=== PATIENT | female | born 1960 | race African-American/Black ===

== ENCOUNTER 2024-11-15 01:45 | Inpatient (IN) | payer OTHER ==
[2024-11-15] MEDS ORDERED: ACETAMINOPHEN INJECTION 100 ML ONE (02:49)
[2024-11-15] MEDS: ACETAMINOPHEN 1000 MG/100 ML BAG IVPB ONE (03:00)
[2024-11-15 03:05] LABS: BASO % 0.2 % (0-2.0); HEMATOCRIT 32.1 % (32.4-45.2); HEMOGLOBIN 9.7 GM/dL (10.7-15.3); LYMPH % 13.4 % (8-40); MCH 30.5 pg (25.7-33.7); MCHC 30.2 g/dl (32.0-36.0); MEAN CELL VOLUME 100.8 fl (80-96); MEAN PLT VOLUME 6.4 fl (7.5-11.1); MONO % 10.7 % (3.8-10.2); NEUT % 74.7 % (42.8-82.8); PLATELET COUNT 481 10^3/uL (134-434); RBC 3.18 M/mm3 (3.60-5.2); RDW 22.2 % (11.6-15.6); WHITE BLOOD COUNT 10.4 K/mm3 (4.0-10.0)
[2024-11-15 03:13] LABS: VENOUS BASE EXCESS 0.7 mmol/L (-2-2); VENOUS O2 SATURATION 37.5 % (70-80); VENOUS PCO2 44.7 mmHg (38-52); VENOUS PH 7.385 (7.310-7.410)
[2024-11-15 03:21] LABS: INR 1.36 (0.83-1.09)
[2024-11-15 03:24] LABS: ACTIVATED PTT 33.2 SECONDS (25.2-36.5)
[2024-11-15 03:39] LABS: CHLORIDE 108 mmol/L (98-107); SODIUM 142 mmol/L (136-145)
[2024-11-15 03:41] LABS: ALBUMIN 1.8 g/dl (3.4-5.0); BLOOD UREA NITROGEN 20.9 mg/dL (7-18); CALCIUM 8.8 mg/dL (8.5-10.1); CO2 27 mmol/L (21-32)
[2024-11-15 03:42] LABS: GLUCOSE,RANDOM 109 mg/dL (74-106)
[2024-11-15 03:44] LABS: CREATININE 0.8 mg/dL (0.55-1.3); SGPT/ALT 35 U/L (13-61)
[2024-11-15 03:45] LABS: SGOT/AST 36 U/L (15-37)
[2024-11-15 03:46] LABS: BILIRUBIN,TOTAL 0.6 mg/dL (0.2-1); TOT PROT 6.5 g/dl (6.4-8.2)
[2024-11-15 03:47] LABS: ALK PHOS 103 U/L (45-117)
[2024-11-15 03:56] LABS: ANION GAP 7 mmol/L (4-13); POTASSIUM 2.8 mmol/L (3.5-5.1)
[2024-11-15] MEDS: LACTATED RINGERS SOLUTION 1000 ML INFUS.BAG IV ONE (04:00)
[2024-11-15 04:11] LABS: MACROCYTOSIS 1+
[2024-11-15] MEDS: KCL 10 MEQ IVPB 10 MEQ/100 ML INFUS.BAG IVPB SCH (04:55)
[2024-11-15 05:56] LABS: MAGNESIUM 1.5 mg/dL (1.8-2.4)
[2024-11-15] MEDS: MAGNESIUM SULFATE IN WATER 2 GM/50 ML IVPB IVPB ONE (07:40)
[2024-11-15] MEDS ORDERED: MAGNESIUM SULFATE IN WATER 2 GM/50 ML IVPB IVPB ONE (07:51)
[2024-11-15] MEDS ORDERED: ACETAMINOPHEN 325 MG TABLET (FP) PO PRN ×2 (08:24→09:29)
[2024-11-15] MEDS: DEXTROSE 5%-LACTATED RINGERS 1,000 ML IV SCH (09:08)
[2024-11-15] MEDS: VANCOMYCIN 1 GM PREMIX (F) 1 GM/200 ML BAG IVPB SCH (10:35)
[2024-11-15] MEDS ORDERED: VANCOMYCIN 1 GM PREMIX (F) 1 GM/200 ML BAG ONE (11:21)
[2024-11-15 12:15] LABS: POTASSIUM 3.7 mmol/L (3.5-5.1)
[2024-11-15 12:17] LABS: BLOOD UREA NITROGEN 21.2 mg/dL (7-18); CALCIUM 9.4 mg/dL (8.5-10.1)
[2024-11-15 12:21] LABS: CREATININE 0.8 mg/dL (0.55-1.3)
[2024-11-15] MEDS: LOSARTAN POTASSIUM 50 MG TABLET PO SCH (13:42)
[2024-11-15] MEDS: FERROUS SO4 325 MG TABLET (FP) PO SCH (13:42)
[2024-11-15] MEDS: ASCORBIC ACID 500 MG TABLET (FP) PO SCH (13:43)
[2024-11-15] MEDS: CHLORTHALIDONE 25 MG TABLET PO SCH (13:43)
[2024-11-15] MEDS: MINERAL OIL/PETROLAT/WATER TOPICAL CREAM 113 GM JAR TP SCH (13:55)
[2024-11-15] MEDS: DONEPEZIL HCL 10 MG TABLET (FP) PO SCH (21:14)
[2024-11-15] MEDS: ATORVASTATIN CA 10 MG TABLET (FP) PO SCH (21:15)
[2024-11-16] MEDS: ACETAMINOPHEN 1000 MG/100 ML BAG IVPB ONE (00:52)
[2024-11-16 09:14] LABS: BASO % 0.6 % (0-2.0); EOS % 1.3 % (0-4.5); HEMATOCRIT 30.5 % (32.4-45.2); HEMOGLOBIN 9.6 GM/dL (10.7-15.3); LYMPH % 12.6 % (8-40); MCH 31.6 pg (25.7-33.7); MCHC 31.4 g/dl (32.0-36.0); MEAN CELL VOLUME 100.7 fl (80-96); MEAN PLT VOLUME 6.5 fl (7.5-11.1); MONO % 12.6 % (3.8-10.2); NEUT % 72.9 % (42.8-82.8); PLATELET COUNT 521 10^3/uL (134-434); RBC 3.03 M/mm3 (3.60-5.2); RDW 21.6 % (11.6-15.6); WHITE BLOOD COUNT 9.4 K/mm3 (4.0-10.0)
[2024-11-16 09:41] LABS: POTASSIUM 3.7 mmol/L (3.5-5.1)
[2024-11-16 09:46] LABS: ALBUMIN 1.7 g/dl (3.4-5.0); BLOOD UREA NITROGEN 13.8 mg/dL (7-18)
[2024-11-16 09:47] LABS: CALCIUM 8.8 mg/dL (8.5-10.1)
[2024-11-16 09:48] LABS: MAGNESIUM 2.1 mg/dL (1.8-2.4)
[2024-11-16 09:50] LABS: CREATININE 0.6 mg/dL (0.55-1.3)
[2024-11-16 09:52] LABS: BILIRUBIN,TOTAL 0.7 mg/dL (0.2-1); TOT PROT 6.5 g/dl (6.4-8.2)
[2024-11-16] MEDS ORDERED: GLUCAGON 1 MG KIT ONE (13:13)
[2024-11-16] MEDS ORDERED: FENTANYL CITRATE/PF 50 MCG/ML VIAL ONE (13:13)
[2024-11-16] MEDS: GlUCAGON HUMAN RECOMBINANT 1 MG/VIAL IVPUSH ONE (13:24)
[2024-11-16 16:09] VITALS: BMI 27.4
[2024-11-16] MEDS: SODIUM CHLORIDE 0.9% 1000 ML INFUS.BAG IV ONE (18:59)
[2024-11-16] MEDS: SODIUM CHLORIDE 1,000 ML IV SCH (19:54)
[2024-11-16] MEDS: VANCOMYCIN 1 GM PREMIX (F) 1 GM/200 ML BAG IVPB SCH (19:57)
[2024-11-16] MEDS: SODIUM CHLORIDE 0.9% 500 ML INFUS.BAG IV SCH (19:58)
[2024-11-16 20:17] LABS: POTASSIUM 3.4 mmol/L (3.5-5.1)
[2024-11-16 20:18] LABS: CALCIUM 8.9 mg/dL (8.5-10.1)
[2024-11-16 20:19] LABS: ALBUMIN 1.7 g/dl (3.4-5.0); BLOOD UREA NITROGEN 13.7 mg/dL (7-18)
[2024-11-16 20:22] LABS: CREATININE 0.6 mg/dL (0.55-1.3)
[2024-11-16 20:24] LABS: BILIRUBIN,TOTAL 0.6 mg/dL (0.2-1); TOT PROT 6.3 g/dl (6.4-8.2)
[2024-11-16] MEDS: PIPERACILLIN/TAZOB 3.375 GM 50 ML IVPB SCH (21:11)
[2024-11-16] MEDS: VANCOMYCIN/WATER FOR INJ (PEG) 1,000 MG/200 ML BAG IVPB SCH (22:09)
[2024-11-17 07:31] LABS: BASO % 0.4 % (0-2.0); EOS % 0.7 % (0-4.5); HEMATOCRIT 27.9 % (32.4-45.2); HEMOGLOBIN 8.9 GM/dL (10.7-15.3); LYMPH % 10.9 % (8-40); MEAN CELL VOLUME 100.1 fl (80-96); MEAN PLT VOLUME 6.6 fl (7.5-11.1); MONO % 10.3 % (3.8-10.2); NEUT % 77.7 % (42.8-82.8); PLATELET COUNT 482 10^3/uL (134-434); RBC 2.79 M/mm3 (3.60-5.2); RDW 21.8 % (11.6-15.6); WHITE BLOOD COUNT 11.8 K/mm3 (4.0-10.0)
[2024-11-17 07:38] LABS: MAGNESIUM 1.6 mg/dL (1.8-2.4)
[2024-11-17] MEDS ORDERED: ACETAMINOPHEN 325 MG TABLET (FP) PO PRN (08:48)
[2024-11-17] MEDS: MAGNESIUM SULFATE IN WATER 2 GM/50 ML IVPB IVPB ONE (08:55)
[2024-11-17 09:13] LABS: POTASSIUM 3.2 mmol/L (3.5-5.1)
[2024-11-17 09:14] LABS: CALCIUM 8.3 mg/dL (8.5-10.1)
[2024-11-17 09:15] LABS: BLOOD UREA NITROGEN 12.5 mg/dL (7-18)
[2024-11-17 09:18] LABS: CREATININE 0.6 mg/dL (0.55-1.3)
[2024-11-17] MEDS: CHLORTHALIDONE 25 MG TABLET PO SCH (09:25)
[2024-11-17] MEDS: LOSARTAN POTASSIUM 50 MG TABLET PO SCH (09:25)
[2024-11-17] MEDS: FERROUS SO4 325 MG TABLET (FP) PO SCH (09:25)
[2024-11-17] MEDS: ASCORBIC ACID 500 MG TABLET (FP) PO SCH (09:26)
[2024-11-17] MEDS: MINERAL OIL/PETROLAT/WATER TOPICAL CREAM 113 GM JAR TP SCH (09:26)
[2024-11-17] MEDS: KCL 10 MEQ IVPB 10 MEQ/100 ML INFUS.BAG IVPB SCH (09:35)
[2024-11-17] MEDS: DONEPEZIL HCL 10 MG TABLET (FP) PO SCH (21:03)
[2024-11-17] MEDS: ATORVASTATIN CA 10 MG TABLET (FP) PO SCH (21:04)
[2024-11-18] MEDS: ALBUTEROL SO4 2.5/IPRATROPIUM 0.5 INH SOL 3 ML VIAL.NEB. NEB ONE (03:25)
[2024-11-18] MEDS: ACETAMINOPHEN 1000 MG/100 ML BAG IVPB ONE (04:29)
[2024-11-18 07:12] LABS: BASO % 0.5 % (0-2.0); EOS % 1.2 % (0-4.5); HEMATOCRIT 28.3 % (32.4-45.2); HEMOGLOBIN 8.9 GM/dL (10.7-15.3); LYMPH % 9.9 % (8-40); MCHC 31.3 g/dl (32.0-36.0); MEAN CELL VOLUME 102.1 fl (80-96); MEAN PLT VOLUME 6.6 fl (7.5-11.1); MONO % 9.1 % (3.8-10.2); NEUT % 79.3 % (42.8-82.8); PLATELET COUNT 475 10^3/uL (134-434); RBC 2.77 M/mm3 (3.60-5.2); RDW 21.6 % (11.6-15.6); WHITE BLOOD COUNT 13.6 K/mm3 (4.0-10.0)
[2024-11-18 07:32] LABS: POTASSIUM 3.2 mmol/L (3.5-5.1)
[2024-11-18 07:46] LABS: BLOOD UREA NITROGEN 12.3 mg/dL (7-18); CALCIUM 8.7 mg/dL (8.5-10.1); MAGNESIUM 2.2 mg/dL (1.8-2.4)
[2024-11-18 07:49] LABS: CREATININE 0.8 mg/dL (0.55-1.3); PHOSPHOROUS 2.9 mg/dL (2.5-4.9)
[2024-11-18] MEDS: SODIUM HYPOCHLORITE 0.25%- 473 ML BULK BOTTLE TP SCH (09:57)
[2024-11-18] MEDS: POTASSIUM CHLORIDE ORAL LIQUID 20 MEQ/15 ML PO SCH (18:36)
[2024-11-19 07:40] LABS: POTASSIUM 4.1 mmol/L (3.5-5.1)
[2024-11-19 07:45] LABS: BASO % 0.4 % (0-2.0); EOS % 2.9 % (0-4.5); HEMATOCRIT 29.2 % (32.4-45.2); HEMOGLOBIN 9.1 GM/dL (10.7-15.3); LYMPH % 15.9 % (8-40); MCH 31.6 pg (25.7-33.7); MCHC 31.2 g/dl (32.0-36.0); MEAN CELL VOLUME 101.3 fl (80-96); MEAN PLT VOLUME 6.7 fl (7.5-11.1); MONO % 7.7 % (3.8-10.2); NEUT % 73.1 % (42.8-82.8); PLATELET COUNT 486 10^3/uL (134-434); RBC 2.88 M/mm3 (3.60-5.2); RDW 21.5 % (11.6-15.6); WHITE BLOOD COUNT 12.1 K/mm3 (4.0-10.0)
[2024-11-19 07:49] LABS: BLOOD UREA NITROGEN 11.8 mg/dL (7-18); CALCIUM 8.6 mg/dL (8.5-10.1)
[2024-11-19 07:50] LABS: ALBUMIN 1.7 g/dl (3.4-5.0); MAGNESIUM 2.1 mg/dL (1.8-2.4)
[2024-11-19 07:53] LABS: CREATININE 0.6 mg/dL (0.55-1.3)
[2024-11-19 07:54] LABS: BILIRUBIN,TOTAL 0.4 mg/dL (0.2-1); TOT PROT 6.3 g/dl (6.4-8.2)
[2024-11-19] MEDS: AMINO ACIDS/PROTEIN HYDROLYS 30 ML LIQUID.PKT PO SCH (10:40)
[2024-11-19] MEDS: NAPH,MB-DB/K PH,MBDB POWDER PACKET PO ONE (10:41)
[2024-11-20 07:35] LABS: POTASSIUM 4.3 mmol/L (3.5-5.1)
[2024-11-20 07:36] LABS: BASO % 0.2 % (0-2.0); EOS % 2.8 % (0-4.5); HEMATOCRIT 31.2 % (32.4-45.2); HEMOGLOBIN 9.7 GM/dL (10.7-15.3); LYMPH % 18.1 % (8-40); MCH 31.8 pg (25.7-33.7); MCHC 31.1 g/dl (32.0-36.0); MEAN CELL VOLUME 102.2 fl (80-96); MEAN PLT VOLUME 6.9 fl (7.5-11.1); MONO % 7.7 % (3.8-10.2); NEUT % 71.2 % (42.8-82.8); PLATELET COUNT 470 10^3/uL (134-434); RBC 3.05 M/mm3 (3.60-5.2); RDW 21.5 % (11.6-15.6); WHITE BLOOD COUNT 11.4 K/mm3 (4.0-10.0)
[2024-11-20 07:42] LABS: BLOOD UREA NITROGEN 12.3 mg/dL (7-18)
[2024-11-20 07:44] LABS: MAGNESIUM 1.9 mg/dL (1.8-2.4)
[2024-11-20 07:47] LABS: PHOSPHOROUS 2.6 mg/dL (2.5-4.9)
[2024-11-20 07:52] LABS: CREATININE 0.7 mg/dL (0.55-1.3)
[2024-11-21 06:15] LABS: INR 1.25 (0.83-1.09); PROTHROMBIN TIME (PATIENT) 13.7 SEC (9.7-13.0)
[2024-11-21 06:18] LABS: BASO % 0.4 % (0-2.0); EOS % 2.6 % (0-4.5); HEMATOCRIT 29.6 % (32.4-45.2); HEMOGLOBIN 9.1 GM/dL (10.7-15.3); LYMPH % 16.2 % (8-40); MCH 31.2 pg (25.7-33.7); MCHC 30.9 g/dl (32.0-36.0); MEAN CELL VOLUME 100.9 fl (80-96); MEAN PLT VOLUME 6.7 fl (7.5-11.1); MONO % 7.3 % (3.8-10.2); NEUT % 73.5 % (42.8-82.8); PLATELET COUNT 434 10^3/uL (134-434); RBC 2.93 M/mm3 (3.60-5.2); RDW 21.5 % (11.6-15.6); WHITE BLOOD COUNT 12.8 K/mm3 (4.0-10.0)
[2024-11-21 06:28] LABS: POTASSIUM 3.4 mmol/L (3.5-5.1)
[2024-11-21 06:31] LABS: ALBUMIN 1.7 g/dl (3.4-5.0); BLOOD UREA NITROGEN 12.7 mg/dL (7-18); MAGNESIUM 1.7 mg/dL (1.8-2.4)
[2024-11-21 06:33] LABS: CREATININE 0.7 mg/dL (0.55-1.3)
[2024-11-21 06:34] LABS: PHOSPHOROUS 2.7 mg/dL (2.5-4.9)
[2024-11-21 06:35] LABS: BILIRUBIN,TOTAL 0.4 mg/dL (0.2-1)
[2024-11-21] MEDS ORDERED: SODIUM HYPOCHLORITE 0.25%- 473 ML BULK BOTTLE TP SCH (10:00)
[2024-11-21] MEDS: POTASSIUM CHLORIDE TABS 10 MEQ TABLET.ER (FP) PO ONE (10:11)
[2024-11-21] MEDS: SODIUM HYPOCHLORITE 0.5% 473 ML- BULK BOTTLE TP SCH (10:12)
[2024-11-21] MEDS: HEPARIN NA (PORCINE) 5,000 UNITS/ML 1ML VIAL SQ SCH (21:05)
[2024-11-22 07:02] LABS: BASO % 0.4 % (0-2.0); HEMATOCRIT 30.8 % (32.4-45.2); HEMOGLOBIN 9.6 GM/dL (10.7-15.3); LYMPH % 17.6 % (8-40); MCH 31.6 pg (25.7-33.7); MCHC 31.1 g/dl (32.0-36.0); MEAN CELL VOLUME 101.6 fl (80-96); MEAN PLT VOLUME 7.1 fl (7.5-11.1); MONO % 7.7 % (3.8-10.2); NEUT % 71.3 % (42.8-82.8); PLATELET COUNT 412 10^3/uL (134-434); RBC 3.03 M/mm3 (3.60-5.2); RDW 21.5 % (11.6-15.6); WHITE BLOOD COUNT 12.4 K/mm3 (4.0-10.0)
[2024-11-22 07:19] LABS: POTASSIUM 3.6 mmol/L (3.5-5.1)
[2024-11-22 07:21] LABS: CALCIUM 8.9 mg/dL (8.5-10.1)
[2024-11-22 07:22] LABS: ALBUMIN 1.8 g/dl (3.4-5.0); BLOOD UREA NITROGEN 14.3 mg/dL (7-18); MAGNESIUM 1.7 mg/dL (1.8-2.4)
[2024-11-22 07:25] LABS: CREATININE 0.7 mg/dL (0.55-1.3); PHOSPHOROUS 2.5 mg/dL (2.5-4.9)
[2024-11-22 07:26] LABS: BILIRUBIN,TOTAL 0.3 mg/dL (0.2-1); TOT PROT 6.5 g/dl (6.4-8.2)
[2024-11-22] MEDS ORDERED: ACETAMINOPHEN 1000 MG/100 ML BAG IVPB PRN (07:41)
[2024-11-22] MEDS: MAGNESIUM 2GM/50ML STERILE WATER IVPB IVPB ONE (10:11)
[2024-11-22] MEDS: AMOX TR/POT CLAV 875MG/125MG TABLETS (FP) PO SCH (10:11)
[2024-11-22] MEDS: amLODIPine BESYLATE 2.5 MG TABLET (FP) PO SCH (10:11)
[2024-11-22] MEDS: SODIUM CHLORIDE 1,000 ML IV STA ×2 (12:00→17:52)
[2024-11-23 07:15] LABS: INR 1.15 (0.83-1.09); PROTHROMBIN TIME (PATIENT) 12.7 SEC (9.7-13.0)
[2024-11-23 07:32] LABS: BASO % 0.1 % (0-2.0); EOS % 3.6 % (0-4.5); HEMATOCRIT 30.4 % (32.4-45.2); HEMOGLOBIN 9.6 GM/dL (10.7-15.3); LYMPH % 20.2 % (8-40); MCH 31.7 pg (25.7-33.7); MCHC 31.5 g/dl (32.0-36.0); MEAN CELL VOLUME 100.7 fl (80-96); MEAN PLT VOLUME 7.1 fl (7.5-11.1); MONO % 9.2 % (3.8-10.2); NEUT % 66.9 % (42.8-82.8); PLATELET COUNT 410 10^3/uL (134-434); POTASSIUM 3.6 mmol/L (3.5-5.1); RBC 3.01 M/mm3 (3.60-5.2); RDW 21.3 % (11.6-15.6); WHITE BLOOD COUNT 12.6 K/mm3 (4.0-10.0)
[2024-11-23 07:42] LABS: ALBUMIN 1.8 g/dl (3.4-5.0); BLOOD UREA NITROGEN 11.7 mg/dL (7-18); CALCIUM 8.7 mg/dL (8.5-10.1)
[2024-11-23 07:44] LABS: CREATININE 0.6 mg/dL (0.55-1.3)
[2024-11-23 07:46] LABS: BILIRUBIN,TOTAL 0.3 mg/dL (0.2-1); TOT PROT 6.5 g/dl (6.4-8.2)
[2024-11-23] MEDS ORDERED: PROPOFOL 40 ML ONE (07:51)
[2024-11-23] MEDS ORDERED: MIDAZOLAM HCL 2 MG/2 ML SINGLE DOSE VIAL ONE (07:51)
[2024-11-23] MEDS ORDERED: SUCCINYLCHOLINE CHLORIDE 200 MG/10 ML SYRINGE ONE (07:53)
[2024-11-23] MEDS: ceFAZolin SODIUM 1 GM VIAL IVPB ONE (08:35)
[2024-11-23] MEDS ORDERED: ETOMIDATE 20 MG/10 ML VIAL IVPUSH ONE (08:36)
[2024-11-23] MEDS ORDERED: LIDOCAINE HCL 1%, 10 MG/ML (20ML VIAL) ONE (08:47)
[2024-11-23] MEDS: LIDOCAINE HCL 1%, 10 MG/ML (20ML VIAL) SQ ONE ×2 (08:49)
[2024-11-23] MEDS ORDERED: ONDANSETRON 4 MG/2 ML VIAL IVPUSH PRN (09:25)
[2024-11-23] MEDS: LACTATED RINGERS SOLUTION 1,000 ML IV SCH (11:00)
[2024-11-23] MEDS: amLODIPine BESYLATE 2.5 MG TABLET (FP) PO ONE (14:28)
[2024-11-24 04:06] VITALS: TEMP 97.9
[2024-11-24] MEDS: SODIUM CHLORIDE 1,000 ML IV SCH (04:46)
[2024-11-24 07:28] LABS: HEMATOCRIT 30.7 % (32.4-45.2); HEMOGLOBIN 9.6 GM/dL (10.7-15.3); MCH 31.6 pg (25.7-33.7); MCHC 31.2 g/dl (32.0-36.0); MEAN CELL VOLUME 101.2 fl (80-96); MEAN PLT VOLUME 7.4 fl (7.5-11.1); PLATELET COUNT 374 10^3/uL (134-434); RBC 3.03 M/mm3 (3.60-5.2); RDW 21.1 % (11.6-15.6); WHITE BLOOD COUNT 10.2 K/mm3 (4.0-10.0)
[2024-11-24 07:39] LABS: POTASSIUM 3.7 mmol/L (3.5-5.1)
[2024-11-24 07:45] LABS: ALBUMIN 1.7 g/dl (3.4-5.0); BLOOD UREA NITROGEN 8.8 mg/dL (7-18); CALCIUM 8.3 mg/dL (8.5-10.1)
[2024-11-24 07:47] LABS: CREATININE 0.5 mg/dL (0.55-1.3); PHOSPHOROUS 2.3 mg/dL (2.5-4.9)
[2024-11-24 07:49] LABS: BILIRUBIN,TOTAL 0.4 mg/dL (0.2-1); TOT PROT 6.1 g/dl (6.4-8.2)
[2024-11-24] MEDS: amLODIPine BESYLATE 5 MG TABLET (FP) PO SCH (09:48)
[2024-11-24 15:13] VITALS: BP 127/92; PULSE 99; RESP 17
== END 2024-11-24 15:32 | DRG 539 ==
LOC: JER 01:45 → JERBED 06:19 → J7W 16:15 → J2W 11-16 23:14
PROVIDERS: ADMIT Internal Medicine; ATTEND Internal Medicine
PROC: 3E0G76Z Introduction of Nutritional Substance into Upper GI, Via Natural or Artificial Opening (ICD-10-PCS; 2024-11-23)
PROC: 0DH63UZ Insertion of Feeding Device into Stomach, Percutaneous Approach (ICD-10-PCS; principal; 2024-11-23 08:00)
DX: M46.28 Osteomyelitis of vertebra, sacral and sacrococcygeal region (principal); E43 Unspecified severe protein-calorie malnutrition; L89.513 Pressure ulcer of right ankle, stage 3; L89.624 Pressure ulcer of left heel, stage 4; L89.154 Pressure ulcer of sacral region, stage 4; R53.2 Functional quadriplegia; J69.0 Pneumonitis due to inhalation of food and vomit; E46 Unspecified protein-calorie malnutrition; E87.1 Hypo-osmolality and hyponatremia; G30.9 Alzheimer's disease, unspecified; F02.80 Dementia in other diseases classified elsewhere, unspecified severity, without behavioral disturbance, psychotic disturbance, mood disturbance, and anxiety; J44.9 Chronic obstructive pulmonary disease, unspecified; I10 Essential (primary) hypertension; D75.839 Thrombocytosis, unspecified; R62.7 Adult failure to thrive; D53.9 Nutritional anemia, unspecified; E87.6 Hypokalemia; E83.42 Hypomagnesemia; K57.90 Diverticulosis of intestine, part unspecified, without perforation or abscess without bleeding; D25.9 Leiomyoma of uterus, unspecified
CPT/HCPCS: 0241U-QW; 36415; 49440; 71045-TC-FY; 73030-TC-LT-FY; 73060-TC-LT-FY; 74018-TC-FY; 74176-TC; 80048; 80053; 82607; 82746; 82803; 83605; 83735; 84100; 84484; 85025; 85027; 85610; 85730; 86850; 86900; 86901; 87040; 87070; 87186; 87205; 87481; 93005; 93010; 93306-TC; 94640; 94760; 99285-25; G0480; J0131; J1644